=== PATIENT | male | born 1965 | race Caucasian/White ===

== ENCOUNTER 2017-09-14 11:58 | Day surgery (SDC) | payer OTHER ==
[~2017-09-14] VITALS: Ht 172.7 cm; Wt 60.0 kg
[2017-09-14 12:16] LABS: HEMATOCRIT 42.6 % (38.0-50.0); HEMOGLOBIN 13.5 G/DL (12.5-16.6); MCH 29.7 PG (29.0-34.0); MCHC 31.7 G/DL (30.0-36.0); MCV 93.6 FL (86-99); PLATELET COUNT 125 K/uL (156-360); RBC DIS.WIDTH-CV 13.7 % (11.8-14.6); RBC DIS.WIDTH-SD 47.1 % (39-53); RED BLOOD COUNT 4.55 M/uL (4.00-5.50); WHITE BLOOD COUNT 11.3 K/uL (4.1-10.2)
[2017-09-14 12:19] LABS: BASE EXCESS -18.8 mEq/L (-3 to +3); BICARBONATE 11.4 mEq/L (22-26); PCO2 42 mm Hg (35-45); PO2 405 mm Hg (80-100)
[2017-09-14 12:21] LABS: pH 7.04 (7.35-7.45)
[2017-09-14 12:22] LABS: COMMENTS - BLOOD GASES A+C+; DEVICE AMBU BAG TO ETT; FI02 100 %; O2 FLOW 15 L/MIN; SITE LR
[2017-09-14 12:26] LABS: INTER. NORMALIZED RATIO 1.2
[2017-09-14 12:29] LABS: PTT 56.9 SEC (25-37)
[2017-09-14 12:29] LABS: AMYLASE 59 IU/L (1-118); CHLORIDE 105 mEq/L (99-109); SODIUM 141 mEq/L (136-147)
[2017-09-14 12:31] LABS: GLUCOSE 366 mg/dL (70-99)
[2017-09-14 12:34] LABS: APPEARANCE CLOUDY ((CLEAR)); BILIRUBIN NEGATIVE; BLOOD SMALL; COLOR YELLOW ((YELLOW)); GLUCOSE (STRIP) NEGATIVE; KETONES NEGATIVE; LEUKOCYTES TRACE; NITRITE NEGATIVE; PROTEIN (STRIP) 30; UROBILINOGEN 0.2 MG/DL (0.2-1.0)
[2017-09-14 12:34] LABS: SERUM ETHYL ALCOHOL < 10 mg/dL
[2017-09-14 12:35] LABS: CREATININE 1.3 mg/dL (0.6-1.3); GFR ESTIMATE (CALCULATED) > 59 mL/min/ (58.99-99999)
[2017-09-14 12:36] LABS: UREA NITROGEN (BUN) 21 mg/dL (9-23)
[2017-09-14 12:38] LABS: LIPASE 29 U/L (1.0-51.0)
[2017-09-14 12:41] LABS: TROP-I INTERPRETATION INDETERMINATE; TROPONIN-I 0.37 ng/mL (0.0-0.30)
[2017-09-14 12:57] LABS: AMPHETAMINE NEGATIVE (500 ng/mL); BARBITURATES NEGATIVE (200 ng/mL); BENZODIAZEPINES NEGATIVE (150 ng/mL); BUPRENORPHINE NEGATIVE (10 ng/mL); COCAINE NEGATIVE (150 ng/mL); METHADONE NEGATIVE (200 ng/mL); METHAMPHETAMINE NEGATIVE (500 ng/mL); OPIATES (MORPHINE) NEGATIVE (100 ng/mL); OXYCODONE NEGATIVE (100 ng/mL); PHENCYCLIDINE NEGATIVE (25 ng/mL); PROPOXYPHENE NEGATIVE (300 ng/mL); THC CANNABINOIDS NEGATIVE (50 ng/mL); TRICYCLIC ANTIDEPRESSANTS NEGATIVE (300 ng/mL)
[2017-09-14 13:05] LABS: RED BLOOD CELLS RARE /HPF (0-5)
[2017-09-14 13:06] LABS: EPITHELIAL CELLS NONE SEEN /HPF; MUCUS NONE SEEN /LPF
[2017-09-14 13:07] LABS: ABS NEUTROPHIL COUNT 6.3; ATYPICAL LYMPHOCYTE 3.7 %; BAND NEUTROPHILS 6.4 % (0-8.0); EOSINOPHIL ABS CT 0.3; EOSINOPHILS 2.7 % (0-5.0); LYMPHOCYTES 34.9 % (15.0-45.0); MONOCYTES 2.8 % (0-9.0); NUCLEATED RBC'S 3.7; PLAT.SUFFICIENCY DECREASED; POIKILOCYTOSIS 1+; SEG.NEUTROPHILS 49.5 % (46.0-76.0)
[2017-09-14 13:07] LABS: BACTERIA RARE /HPF; UCUL ADDED? YES
[2017-09-14 13:08] LABS: AMORPHOUS URATES CRYSTALS FEW
[2017-09-14 13:30] VITALS: BP 135/86
== END 2017-09-14 13:45 ==
LOC: EME 11:58 → CATH 13:19
PROVIDERS: Emergency Medicine
PROC: 5A12012 Performance of Cardiac Output, Single, Manual (ICD-10-PCS; principal; 2017-09-14)
DX: I46.9 Cardiac arrest, cause unspecified (principal); I21.9 Acute myocardial infarction, unspecified; Z82.49 Family history of ischemic heart disease and other diseases of the circulatory system; R73.9 Hyperglycemia, unspecified; R73.03 Prediabetes; I10 Essential (primary) hypertension; E78.5 Hyperlipidemia, unspecified; F17.200 Nicotine dependence, unspecified, uncomplicated; Z91.19 Patient's noncompliance with other medical treatment and regimen; Z88.5 Allergy status to narcotic agent
CPT/HCPCS: 36600; 70450; 71045; 80047; 80048; 81003; 82150; 82803; 83605; 83690; 84484; 85025; 85610; 85730; 86850; 86900; 86901; 87040; 87070; 87086; 87205; 93005; 99281; 99285; C1894; G0480; J0171; J0282; J0461; J1644; J2250; J7030; J7050